=== PATIENT | female | born 1960 | race Caucasian/White ===

== ENCOUNTER 2025-04-27 13:10 | Outpatient (CLI) | payer MEDICARE, OTHER, SELFPAY ==
--- NOTE | 2025-04-27 13:20 | MM_ITS ---
WS: [id number] BILATERAL 3D TOMOSYNTHESIS DIGITAL SCREENING MAMMOGRAPHY WITH CAD CLINICAL INFORMATION: SCREENING HISTORY: Screening mammogram. No current complaints. COMPARISON: 2017 TECHNIQUE: Bilateral CC and MLO views. FINDINGS: The breasts are composed of heterogeneous fibroglandular density tissue, which can limit the detection of small underlying mass lesions. Benign coarse calcification RIGHT breast. Small asymmetric nodular density central LEFT breast. Recommend LEFT breast diagnostic mammography and ultrasound if persist ent. Unremarkable RIGHT breast. MM/MM [facility] tomosynthesis [id number] IMPRESSION: DENSITY: The breasts are heterogeneously dense, which may obscure small masses. BI-RADS: 0 - Incomplete: Need additional imaging evaluation FOLLOW UP: Need Additional Imaging Recommend LEFT breast diagnostic mammography and ultrasound if persistent.
== END 2025-04-27 13:11 | disposition home or self-care (01) ==
PROVIDERS: PCP Registered Nurse; Visit Provider Registered Nurse
DX: Z12.31 Encounter for screening mammogram for malignant neoplasm of breast (principal); R92.323 Mammographic fibroglandular density, bilateral breasts; R92.333 Mammographic heterogeneous density, bilateral breasts; R92.1 Mammographic calcification found on diagnostic imaging of breast; N64.89 Other specified disorders of breast
CPT/HCPCS: 77063; 77067

== ENCOUNTER 2025-06-02 08:26 | Outpatient (CLI) | payer MEDICARE, OTHER, SELFPAY ==
--- NOTE | 2025-06-02 08:32 | MM_ITS ---
WS: [id number] LEFT 3D TOMOSYNTHESIS DIGITAL MAMMOGRAPHY WITH CAD CLINICAL INFORMATION: ABNORMAL MAMMOGRAM HISTORY: Additional views COMPARISON: 04/27/2025 TECHNIQUE: 2 views of the left breast were obtained. FINDINGS: The breasts are composed of heterogeneous fibroglandular density tissue, which can limit the detection of small underlying mass lesions. Again seen is the asymmetric ovoid density near the 12 o'clock position LEFT breast middle depth. Ultrasound is described below. ULTRASOUND BREAST LEFT TECHNIQUE: Ultrasound left breast focused area of concern. CLINICAL INFORMATION: ABNORMAL MAMMOGRAM FINDINGS: Ultrasound LEFT breast 11 to 1 o'clock position. No suspicious findings in the area of concern. Incidental ductal ectasia. Dense parenchymal tissue. Recommend return to annual screening mammography. MM/MM diag LT tomosynthesis [id number] IMPRESSION: DENSITY: The breasts are heterogeneously dense, which may obscure small masses. BI-RADS: 2 - Benign FOLLOW UP: 1 Year Follow-up Recommend return to annual screening mammography.
== END 2025-06-02 08:27 | disposition home or self-care (01) ==
LOC: RAD 08:27
PROVIDERS: PCP Registered Nurse; Visit Provider Registered Nurse
DX: R92.8 Other abnormal and inconclusive findings on diagnostic imaging of breast (principal); R92.323 Mammographic fibroglandular density, bilateral breasts; R92.333 Mammographic heterogeneous density, bilateral breasts; N64.89 Other specified disorders of breast
CPT/HCPCS: 76642; 77061; 77063